=== PATIENT | male | born 1985 | race Hispanic/Latino ===

== ENCOUNTER 2016-08-31 13:10 | Emergency (ER) | payer BC ==
[2016-08-31 15:01] VITALS: BP 143/101
== END 2016-08-31 15:50 | disposition left against medical advice (07) ==
LOC: ED 13:10
DX: L05.91 Pilonidal cyst without abscess (principal); Z53.21 Procedure and treatment not carried out due to patient leaving prior to being seen by health care provider

== ENCOUNTER 2016-12-26 21:45 | Emergency (ER) | payer BC ==
[2016-12-26 21:55] VITALS: BP 131/89
[2016-12-26] MEDS ORDERED: BSS 1 DROPS, TETRACAINE 0.5% 1 DROPS, FUL-GLO 1 MG OS ONE (22:32)
[2016-12-26] MEDS ORDERED: TETRACAINE 0.5% ONE (22:34)
[2016-12-26] MEDS ORDERED: FUL-GLO OP ONE (22:35)
--- NOTE | 2016-12-26 22:53 | Emergency Department Report ---
Eye Injury/Foreign Body - HPI Duration: Today Tetanus Status: Up to Date Eye Symptoms: Eye Pain: No, Blurred Vision: No, Eye Redness: Yes, Grinding/ Hammering Metal: No, Used Eye Protection: No, Contact Lens Use: No, Recalls Injury: Yes, Photophobia: No Other History: 31-year-old male comes in for complaint of left I feel like something sitting. Patient reports he was walking in the yard and cut a walked into a spiderweb felt that the bug such a size. He began to rub and now he comes in with left eye pain and swelling. She reports no past medical history he currently takes no medications he has no drug allergies. ED Review of Systems ROS: Stated complaint: INSECT BITE LF EYE Other details as noted in HPI Comment: All other systems reviewed and negative Eyes: eye pain, other (FI swollen). denies: eye discharge, vision change ENT: denies: ear pain, throat pain Respiratory: denies: cough, shortness of breath, wheezing Cardiovascular: denies: chest pain, palpitations Endocrine: no symptoms reported Gastrointestinal: denies: abdominal pain, nausea, diarrhea ED Past Medical Hx - Past Medical History Previous Medical History?: Yes Hx Asthma: Yes - Surgical History Past Surgical History?: No - Social History Smoking Status: Current Every Day Smoker Substance Use Type: None - Medications Home Medications: Home Medications Medication Instructions Recorded Confirmed Last Taken Type Acetaminophen/Codeine [Tylenol #3] 1 tab PO Q6H PRN #20 tab 03/16/16 Unknown Rx Ibuprofen [Motrin] 600 mg PO Q8H PRN #50 tablet 03/16/16 Unknown Rx Sulfamethoxazole/Trimethoprim 1 each PO BID #20 tablet 03/16/16 Unknown Rx [Bactrim DS TAB] Ofloxacin 0.3% [Ocuflox] 1 drops OS BID #1 bottle 12/26/16 Unknown Rx Eye Injury Exam - Exam General: Vital signs noted. No distress. Alert and acting appropriately. - Visual Acuity Left Eye Exam: Left Fluorescein Uptake, Left Photophobia, Neither Injection, Neither Chemosis, Neither Abnormal Pupil, Neither EOMI, Neither Eye Foreign Body, Neither Lid Foreign Body, Neither Mucous Discharge, Neither Purulent Discharge, Neither Corneal Edema ED Course Vital Signs 12/26/16 21:51 Temperature 98.3 F Pulse Rate 78 Respiratory 18 Rate Blood Pressure 131/89 O2 Sat by Pulse 97 Oximetry ED Medical Decision Making - Medical Decision Making Patient has been evaluated by this provider in fast track. Fluoroscopy seen exam was performed which showed an uptake in the lower area of the cornea approximately 6:00. Discussed with patient that he will be placed on antibiotic eyedrops and that he needs to use it for the next 2 days I did discuss with patient that is very important for him to follow-up with an voip network technician within the next 24-48 hours. Patient verbalized understanding. Critical care attestation.: If time is entered above; I have spent that time in minutes in the direct care of this critically ill patient, excluding procedure time. ED Disposition Clinical Impression: Corneal abrasion, left Qualifiers: Encounter type: initial encounter Qualified Code(s): S05.02XA - Injury of conjunctiva and corneal abrasion without foreign body, left eye, initial encounter Disposition: DISCHARGED TO HOME OR SELFCARE Is pt being admited?: No Does the pt Need Aspirin: No Condition: Stable Instructions: Corneal Abrasion (ED) Additional Instructions: Please use the antibiotic eyedrops as prescribed. It is very important for you to follow-up with an voip network technician within the next 24-48 hours. I have listed several engineering technical specialist below. Prescriptions: Ofloxacin 0.3% [Ocuflox] 1 drops OS BID #1 bottle Referrals: RANDELL PRESTON MD [Staff Physician] - 3-5 Days [facility] [Provider Group] - 3-5 Days Forms: Work/School Release Form(ED), Accompanied Note
== END 2016-12-26 23:14 | disposition home or self-care (01) ==
LOC: ED 21:45
DX: S05.02XA Injury of conjunctiva and corneal abrasion without foreign body, left eye, initial encounter (principal); J45.909 Unspecified asthma, uncomplicated; F17.200 Nicotine dependence, unspecified, uncomplicated; X58.XXXA Exposure to other specified factors, initial encounter; Y93.9 Activity, unspecified; Y99.9 Unspecified external cause status; Y92.9 Unspecified place or not applicable
CPT/HCPCS: 99283

== ENCOUNTER 2017-08-25 10:12 | Emergency (ER) | payer BC ==
[2017-08-25 10:20] VITALS: BP 146/99
[2017-08-25] MEDS ORDERED: BICILLIN L-A IM ONE (11:15)
[2017-08-25] MEDS ORDERED: TORADOL IM ONE (11:15)
--- NOTE | 2017-08-25 11:15 | Emergency Department Report ---
ED ENT HPI - General Chief complaint: Dental/Oral Stated complaint: dental pain Time Seen by Provider: 08/25/17 11:01 Source: patient Mode of arrival: Ambulatory Limitations: No Limitations - History of Present Illness MD complaint: tooth pain -: Gradual, month(s) (recurrent; denies drug use) Location: other (l lower most severe; but diffuse disease) Severity: moderate Consistency: constant Improves with: none Worsens with: eating Context- Dental: history of dental caries, poor dental care Associated Symptoms: toothache. denies: fever, cough, gum swelling, pain with swallowing, sore throat, tinnitus, hearing loss, discharge from ear, rhinorrhea - Related Data Previous Rx's Medication Instructions Recorded Last Taken Type Amoxicillin 500 mg PO BID #20 capsule 08/25/17 Unknown Rx Naproxen [Naprosyn] 500 mg PO BID PRN #20 tablet 08/25/17 Unknown Rx Allergies Allergy/AdvReac Type Severity Reaction Status Date / Time No Known Allergies Allergy Unverified 03/16/16 15:20 ED Dental HPI - General Chief complaint: Dental/Oral Stated complaint: BROKEN TOOTH Time Seen by Provider: 08/25/17 11:01 Source: patient Mode of arrival: Ambulatory Limitations: No Limitations - Related Data Previous Rx's Medication Instructions Recorded Last Taken Type Amoxicillin 500 mg PO BID #20 capsule 08/25/17 Unknown Rx Naproxen [Naprosyn] 500 mg PO BID PRN #20 tablet 08/25/17 Unknown Rx Allergies Allergy/AdvReac Type Severity Reaction Status Date / Time No Known Allergies Allergy Unverified 03/16/16 15:20 ED Review of Systems ROS: Stated complaint: BROKEN TOOTH Other details as noted in HPI Comment: All other systems reviewed and negative Constitutional: denies: fever ENT: dental pain. denies: throat pain ED Past Medical Hx - Past Medical History Previous Medical History?: Yes Hx Asthma: Yes Additional medical history: dental disease - Surgical History Past Surgical History?: No - Social History Smoking Status: Current Every Day Smoker Substance Use Type: Alcohol, Marijuana - Medications Home Medications: Home Medications Medication Instructions Recorded Confirmed Last Taken Type Amoxicillin 500 mg PO BID #20 capsule 08/25/17 Unknown Rx Naproxen [Naprosyn] 500 mg PO BID PRN #20 tablet 08/25/17 Unknown Rx ED Physical Exam - General Limitations: No Limitations General appearance: alert - Head Head exam: Present: atraumatic - Eye Eye exam: Present: PERRL - ENT ENT exam: Present: mucous membranes moist - Expanded ENT Exam Expanded Mouth exam: Present: tongue normal. Absent: drooling, trismus, muffled voice, tongue elevation Teeth exam: Present: dental caries 1 - Other (indicated area of most pain but pt has diffuse disease) Throat exam: Positive: normal inspection. Negative: tonsillar erythema, tonsillomegaly, tonsillar exudate, R peritonsillar mass, L peritonsillar mass - Neck Neck exam: Present: normal inspection, full ROM. Absent: tenderness, meningismus, lymphadenopathy, thyromegaly - Respiratory Respiratory exam: Present: normal lung sounds bilaterally - Cardiovascular Cardiovascular Exam: Present: regular rate - GI/Abdominal GI/Abdominal exam: Present: soft - Rectal Rectal exam: Present: deferred - Extremities Exam Extremities exam: Present: normal inspection - Back Exam Back exam: Present: normal inspection - Neurological Exam Neurological exam: Present: alert, oriented X3 - Psychiatric Psychiatric exam: Present: normal affect, normal mood - Skin Skin exam: Present: warm, dry, intact ED Course Vital Signs 08/25/17 10:17 Temperature 98 F Pulse Rate 78 Respiratory 20 Rate Blood Pressure 146/99 O2 Sat by Pulse 100 Oximetry - Reevaluation(s) Reevaluation #1: 08/25/17 11:37 vss no fever taking po no ludwigs no abscess no ludwigs ED Medical Decision Making - Medical Decision Making see note - Differential Diagnosis dental dz Critical care attestation.: If time is entered above; I have spent that time in minutes in the direct care of this critically ill patient, excluding procedure time. ED Disposition Clinical Impression: Dental caries Disposition: DC- TO HOME OR SELFCARE Is pt being admited?: No Does the pt Need Aspirin: No Condition: Stable Instructions: Dental Caries (ED) Additional Instructions: medications as ordered today see dentist as soon as possible see list provided to you today good oral hygiene Referrals: PRIMARY CARE, [Primary Care Provider] - 3-[address] [facility] [Outside] - 3-5 Days Time of Disposition: 11:35
== END 2017-08-25 11:55 | disposition home or self-care (01) ==
LOC: ED 10:12
DX: K02.9 Dental caries, unspecified (principal); J45.909 Unspecified asthma, uncomplicated; F17.200 Nicotine dependence, unspecified, uncomplicated; F12.10 Cannabis abuse, uncomplicated
CPT/HCPCS: 96372; 99282; J0561; J1885